=== PATIENT | female | born 1965 | race Caucasian/White ===

== ENCOUNTER → 2017-04-12 | Outpatient (CLI) | payer BC | END | disposition home or self-care (01) | LOC: LABWHC1 17:36 | PROVIDERS: ATTEND Clinical Nurse Specialist Women's Health | DX: Z78.0 Asymptomatic menopausal state (principal) | CPT/HCPCS: 36415; 82670; 83001; 84144 ==

== ENCOUNTER → 2017-04-23 | Outpatient (CLI) | payer BC ==
--- NOTE | 2017-04-25 08:17 | MM ---
Reason for exam: screening (asymptomatic). Last mammogram was performed 1 year and 2 months ago. History: Patient is nulliparous. Physical Findings: A clinical breast exam by your physician is recommended on an annual basis and results should be correlated with mammographic findings. MG Screening Mammo w CAD Bilateral CC and MLO view(s) were taken. XCCL view(s) were taken of the right breast. Prior study comparison: February 21, 2016, bilateral MG 3d screening mammo w/cad. November 05, 2012, bilateral digital screening mammo w/CAD. There are scattered fibroglandular densities. Asymmetric density centrally and anteriorly on the left CC view appears more defined. ASSESSMENT: Incomplete: need additional imaging evaluation, BI-RAD 0 RECOMMENDATION: Special view mammogram of the left breast. If lesion persists on supplemental views, image directed ultrasound is recommended. [facility] will attempt to contact patient to return for supplemental views and ultrasound if indicated.
== END | disposition home or self-care (01) ==
LOC: RADMAMWWP 13:21
PROVIDERS: ATTEND Obstetrics & Gynecology
DX: Z12.31 Encounter for screening mammogram for malignant neoplasm of breast (principal)

== ENCOUNTER → 2017-05-07 | Outpatient (CLI) | payer BC ==
--- NOTE | 2017-05-07 14:30 | MM ---
Reason for exam: screening (asymptomatic). Last mammogram was performed less than 1 month ago. History: Patient is nulliparous. Physical Findings: A clinical breast exam by your physician is recommended on an annual basis and results should be correlated with mammographic findings. MG Work Up Mamm w CAD LT LM and spot compression CC view(s) were taken of the left breast. Prior study comparison: April 23, 2017, bilateral MG screening mammo w CAD. February 21, 2016, bilateral MG 3d screening mammo w/cad. Asymmetric density does not persist as distinct lesion on additional views. These results were verbally communicated with the patient and result sheet given to the patient on 05/07/17. ASSESSMENT: Benign, BI-RAD 2 RECOMMENDATION: Return to routine screening mammogram schedule for both breasts.
== END | disposition home or self-care (01) ==
LOC: RADMAMWWP 13:35
PROVIDERS: ATTEND Obstetrics & Gynecology
DX: R92.8 Other abnormal and inconclusive findings on diagnostic imaging of breast (principal)

== ENCOUNTER 2018-02-24 17:11 | Emergency (ER) | payer BC ==
[2018-02-24 17:16] VITALS: BP 141/89; PULSE 91; RESP 20; TEMP 98.9
--- NOTE | 2018-02-24 17:49 | XR ---
EXAMINATION TYPE: XR foot complete RT DATE OF EXAM: 02/24/2018 COMPARISON: NONE HISTORY: Foot pain TECHNIQUE: 3 views FINDINGS: There is some spurring at the first MP joint. There are plantar and Achilles calcaneal spur s. Metatarsals are intact. I see no fracture nor dislocation. There are no erosions. 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 No fracture seen.
--- NOTE | 2018-02-24 18:08 | ED ---
Lower Extremity Injury HPI - General Chief Complaint: Extremity Injury, Lower Stated Complaint: RT FOOT PAIN Time Seen by Provider: 02/24/18 17:56 Source: patient Mode of arrival: ambulatory Limitations: no limitations - History of Present Illness Initial Comments: This a 52-year-old female who denies past medical history presents today for chief complaint of pain at the base the right toe. Patient states that around 2 PM she was at the [employer] and across from [employer] in [place]. Patient had bought cucumbers and they were in her back, when the bag ripped and she stepped on one causing her to fall off her pressure on her right great toe to catch herself. She felt as though it that back quite a ways, patient denies injury to the right ankle. Patient felt to right knee. Patient denies any pain in the right knee, hitting head, loss of consciousness, numbness/tingling/ paresthesias/loss sensation of the right great toe or foot. Patient back to work after injury, however she noticed increasing pain with ambulation and wanted to present to the emergency department to make sure there was no fracture. Patient did not take any medication or ice injury prior to arrival. Upon arrival patient's vital signs stable. Patient denies any recent fever, chills, shortness of breath, chest pain, back pain, abdominal pain, nausea or vomiting, numbness or tingling, dysuria or hematuria, constipation or diarrhea, headaches or visual changes, or any other complaints. - Related Data Allergies Allergy/AdvReac Type Severity Reaction Status Date / Time codeine Allergy Nausea & Verified 02/24/18 17:16 Vomiting Review of Systems ROS Statement: Those systems with pertinent positive or pertinent negative responses have been documented in the HPI. ROS Other: All systems not noted in ROS Statement are negative. Constitutional: Denies: fever, chills, weakness Eyes: Denies: eye pain, vision change ENT: Denies: ear pain, throat pain Respiratory: Denies: cough, dyspnea Cardiovascular: Denies: chest pain, palpitations Endocrine: Denies: fatigue Gastrointestinal: Denies: abdominal pain, nausea, vomiting Genitourinary: Denies: urgency, dysuria Musculoskeletal: Reports: as per HPI, arthralgia. Denies: back pain, joint swelling, myalgia Skin: Denies: rash, lesions Neurological: Denies: numbness, paresthesias, confusion, abnormal gait, vertigo Past Medical History Past Medical History: No Reported History History of Any Multi-Drug Resistant Organisms: None Reported Past Surgical History: Hysterectomy Past Psychological History: No Psychological Hx Reported Smoking Status: Never smoker Past Alcohol Use History: None Reported Past Drug Use History: None Reported General Exam - General Exam Comments Initial Comments: General: The patient is awake and alert, in no distress, and does not appear acutely ill. Eye: Pupils are equal, round and reactive to light, extra-ocular movements are intact. No nystagmus. There is normal conjunctiva bilaterally. No signs of icterus. Ears, nose, mouth and throat: There are moist mucous membranes and no oral lesions. Neck: The neck is supple, there is no tenderness or JVD. Cardiovascular: There is a regular rate and rhythm. No murmur, rub or gallop is appreciated. Respiratory: Lungs are clear to auscultation, respirations are non-labored, breath sounds are equal. No wheezes, stridor, rales, or rhonchi. Musculoskeletal: Normal ROM and 5/5 strength of the knees, ankles, MCP, PIP and DIP joint of the toes of the feet b/l, tenderness to active range of motion of the right great toe. Sensation intact of LE and feet b/l. +2 DP pulses equal bilaterally 2+. No midfoot pain to palpation. Compartments are soft and compressible. Neurological: A&O x 3. CN II-XII intact, There are no obvious motor or sensory deficits. Coordination appears grossly intact. Speech is normal. Skin: Skin is warm and dry and no rashes. Small superficial abrasion over right knee Psychiatric: Cooperative, appropriate mood & affect, normal judgment. Limitations: no limitations Course Vital Signs 02/24/18 17:13 Temperature 98.9 F Pulse Rate 91 Respiratory 20 Rate Blood Pressure 141/89 O2 Sat by Pulse 96 Oximetry Medical Decision Making - Medical Decision Making XR right foot (-) given HX and PE concerned for right toe sprain. No pain to palpation low suspicion for lis franc injury at this time. Pt neurovascularly intact. Pt discharged with RICE instruction, instruction to use over the counter pain medication and needed. And f/u with orthopedics or PCP in 1 week if symptoms persist.Case discussed with Dr. Michele in detail who agreed with impression and plan. Pt agreed with plan d/c in stable condition. Disposition Clinical Impression: Right foot pain, Pain of right great toe Disposition: HOME SELF-CARE Condition: Good Instructions: Foot Sprain (ED) Additional Instructions: Please use over the counter pain medication as discussed. Please follow-up with family doctor or orthopedic surgery in the next week of symptoms have not improved. Ice, elevate and rest foot as discussed. Please return to emergency room if the symptoms increase or worsen or for any other concerns. Is patient prescribed a controlled substance at d/c from ED?: No Referrals: Puneet Villarreal MD [Primary Care Provider] - 1-2 days Julius Vital PAC [PHYSICIAN WORSHIP PASTOR] - 1-2 days Time of Disposition: 18:08
== END 2018-02-24 18:30 | disposition home or self-care (01) ==
LOC: EC 17:11
DX: M79.674 Pain in right toe(s) (principal); Z88.5 Allergy status to narcotic agent
CPT/HCPCS: 99283

== ENCOUNTER → 2018-04-24 | Outpatient (CLI) | payer BC ==
--- NOTE | 2018-04-28 08:58 | MM ---
Reason for exam: screening (asymptomatic). Last mammogram was performed 1 year ago. History: Patient is nulliparous. Took hormonal contraceptives for 8 years. Physical Findings: A clinical breast exam by your physician is recommended on an annual basis and results should be correlated with mammographic findings. MG Screening Mammo w CAD Bilateral CC and MLO view(s) were taken. Prior study comparison: May 07, 2017, left breast MG work up mamm w CAD LT. April 23, 2017, bilateral MG screening mammo w CAD. The breast tissue is heterogeneously dense. This may lower the sensitivity of mammography. Developing asymmetry left medial posterior CC view. This finding is changed when compared with previous exams. ASSESSMENT: Incomplete: need additional imaging evaluation, BI-RAD 0 RECOMMENDATION: Special view mammogram of the left breast. If lesion persists on supplemental views, image directed ultrasound is recommended. [facility] will attempt to contact patient to return for supplemental views and ultrasound if indicated.
== END | disposition home or self-care (01) ==
LOC: RADMAMWWP 11:39
PROVIDERS: ATTEND Obstetrics & Gynecology
DX: Z12.31 Encounter for screening mammogram for malignant neoplasm of breast (principal)
CPT/HCPCS: 77067

== ENCOUNTER → 2018-05-01 | Outpatient (CLI) | payer BC ==
--- NOTE | 2018-05-01 11:28 | MM ---
Reason for exam: additional evaluation requested from abnormal screening. Last mammogram was performed less than 1 month ago. History: Patient is nulliparous. Took hormonal contraceptives for 8 years. Physical Findings: Nurse did not find any significant physical abnormalities on exam. MG Work Up Mamm w CAD LT Spot compression CC and LM view(s) were taken of the left breast. Prior study comparison: April 24, 2018, bilateral MG screening mammo w CAD. May 07, 2017, left breast MG work up mamm w CAD LT. The breast tissue is heterogeneously dense. This may lower the sensitivity of mammography. The medial asymmetric density becomes less defined on spot compression. No mass is identified. Precautionary 6 month follow up recommended. These results were verbally communicated with the patient and result sheet given to the patient on 05/01/18. ASSESSMENT: Probably benign, BI-RAD 3 RECOMMENDATION: Follow-up diagnostic mammogram of the left breast in 6 months.
== END | disposition home or self-care (01) ==
LOC: RADMAMWWP 10:29
PROVIDERS: ATTEND Obstetrics & Gynecology
DX: R92.8 Other abnormal and inconclusive findings on diagnostic imaging of breast (principal)
CPT/HCPCS: 77065